=== PATIENT | male | born 1940 | race Caucasian/White ===

== ENCOUNTER → 2022-08-24 14:48 | Outpatient (BNVA) | payer MEDICARE, BC, SELFPAY | PROVIDERS: PCP Internal Medicine; Referring Provider Nurse Practitioner Family; Visit Provider Specialist | DX: F41.0 Panic disorder [episodic paroxysmal anxiety]; F41.9 Anxiety disorder, unspecified; F32.A Depression, unspecified; R29.818 Other symptoms and signs involving the nervous system; U09.9 Post COVID-19 condition, unspecified | CPT/HCPCS: 36415; 82607; 82746; 85651; 95816; 99205 ==

== ENCOUNTER → 2022-11-25 15:09 | Outpatient (BNVA) | payer MEDICARE, BC, SELFPAY | PROVIDERS: PCP Internal Medicine; Visit Provider Specialist | DX: F41.0 Panic disorder [episodic paroxysmal anxiety] (principal); F41.9 Anxiety disorder, unspecified; R25.1 Tremor, unspecified; F32.A Depression, unspecified; U09.9 Post COVID-19 condition, unspecified; R56.9 Unspecified convulsions; F03.90 Unspecified dementia, unspecified severity, without behavioral disturbance, psychotic disturbance, mood disturbance, and anxiety | CPT/HCPCS: 99214 ==